=== PATIENT | female | born 2000 ===

== ENCOUNTER 2024-11-11 12:52 | Inpatient (IN) | payer OTHER ==
[~2024-11-11] VITALS: Wt 123.9 kg
[2024-11-11 16:25] VITALS: BP 124/73
[2024-11-11] MEDS ORDERED: Albuterol HFA200 ACT/6.7 GM INH INH PRN (16:25)
[2024-11-11] MEDS ORDERED: EpiNEPhrine 1 MG/1 ML 1ML Vial IM SCH (16:25)
[2024-11-11] MEDS ORDERED: Polyethylene Glycol 3350 17 gm PO PRN (16:30)
[2024-11-11] MEDS ORDERED: DiphenhydrAMINE HCl 50 MG/ML 1ML Vial IM PRN (16:35)
[2024-11-11] MEDS ORDERED: Haloperidol Lactate Inj. 5 MG/ML Injection IM PRN (16:35)
[2024-11-11 16:44] VITALS: BP 124/73
[2024-11-11] MEDS ORDERED: Aluminum Hydroxide 320MG/5ML 473 ML PO PRN (16:45)
[2024-11-11] MEDS ORDERED: Ondansetron 4 MG SoluTab MM PRN (16:45)
[2024-11-11] MEDS ORDERED: AMPDEX30CR (17:02)
[2024-11-11] MEDS ORDERED: SYMBICORT 80-46.9 GM (17:05)
[2024-11-11] MEDS ORDERED: CEFP200 PO (17:06)
[2024-11-11] MEDS ORDERED: ESCI10 PO (17:08)
[2024-11-11] MEDS ORDERED: VITAMIN D5000 UNIT PO (17:08)
[2024-11-11] MEDS ORDERED: HYDHCL25 PO (17:09)
[2024-11-11] MEDS ORDERED: MIRT15 (17:11)
[2024-11-11] MEDS ORDERED: QUETIAPINE FUMA25 MG PO (17:13)
[2024-11-11] MEDS ORDERED: EpiNEPhrine 1 MG/1 ML 1ML Vial IM PRN (18:20)
--- NOTE | 2024-11-11 18:24 | NUR ---
SHIFT SUMMARY PT ARRIVED ON UNIT AT 1600. ENDORSES SI W/ NO PLAN. DENIES HI, AVTH. PT TEARFUL AT TIMES, BUT PLEASANT AND COOPERATIVE. CURRENTLY PLAYING HARRY IN DINING ROOM W/ PEERS. PT STATED THAT SI IS D/T TRIGGERING EVENTS AND THAT SHE "RARELY" HAS SI UNLESS SOMETHING TRIGGERS IT. PT STATED THE CURRENT TRIGGERING EVENT WAS D/T TO "NOT BEING ABLE TO TAKE CARE OF MYSELF" AND STATED BECAUSE SHE MISSED AN APPOINTMENT AND THAT THE BUS DIDNT' ARRIVE TO WHEN SHE WAS TRYING TO GET TO [facility].
--- NOTE | 2024-11-12 05:01 | NUR ---
SHIFT SUMMARY: PATIENT WAS IN THE DINING ROOM EATING DINNER AT THE BEGINNING OF THE SHIFT. SHE LEFT AFTER EATING A FEW BITES, AND CAME OUT TO THE [facility]. SHE DECIDED SHE WAS STILL HUNGRY, AND WAS ALLOWED TO GO BACK IN AND FINISH HER MEAL. SHE THEN CAME OUT AND ASKED FOR MEDICATION FOR ANXIETY. SHE WAS GIVEN VISTARIL WITH GOOD EFFECT. SHE SAT IN THE MIL[facility] AND TALKED WITH A PEER FOR A TIME, THEN WENT DOWN TO HER ROOM. SHE WAS ABLE TO ANSWER ASSOCIATE PROFESSOR OF SOCIOLOGY QUESTIONS IN A LOGICAL AND LINEAR MANNER. SHE DENIED SUICIDAL IDEATION, THOUGHTS OF SELF HARMING AND A/V/T HALLUCINATIONS. SHE PARTICIPATED IN SNACK AND WAS PLEASANT AND COOPERATIVE WITH CARES. SHE ASKED FOR MEDICATION TO HELP HER SLEEP, WHICH WAS GIVEN. SHE THEN WENT TO BED, WHERE SHE WAS NOTED TO BE RESTING QUIETLY WITH EYES CLOSED AND RESPIRATIONS CONFIRMED FOR THE REMAINDER OF THE SHIFT. CONTINUING TO MONITOR FOR SAFETY WITH Q15 MINUTE CHECKS.
[2024-11-12 07:14] LABS: LDL/HDL RATIO 1.5; Very Low Density Lipoprot Chol 16 mg/dL (6-28)
[2024-11-12 07:15] LABS: CHOL/HDL RATIO 2.8; Cholesterol 140 mg/dL (50-200); HDL Cholesterol 50 mg/dL (>39); Low Density Lipoprotein Chol 74 mg/dL (0-110); Triglycerides 81 mg/dL (30-140)
[2024-11-12] MEDS ORDERED: Multivitamins 1 Tab PO SCH (09:00)
[2024-11-12 09:18] VITALS: BP 93/60
--- NOTE | 2024-11-12 17:59 | NUR ---
SHIFT SUMMARY NO ACUTE EVENTS TODAY. PT ENDORSES BEING SAD, BUT DENYING SI, HI, AVTH. STATES SHE IS FEELING, "A LITTLE BETTER". PT WENT TO AFTERNOON GROUPS AND HAS BEEN INTERACTING W/ PEERS AND STAFF. PT ALSO DRAWING, WHICH SHE HAD MENTIONED DURING ADMIT IS SOMETHING SHE SHE ENJOYS DOING, BUT HASN'T BEEN DOING SO D/T DEPRESSION. HAS NOT BEEN TEARFUL/LABILE W/ MOOD TODAY.
[2024-11-12 19:25] VITALS: BP 99/76
--- NOTE | 2024-11-13 05:18 | NUR ---
SHIFT SUMMARY Pt is A&O, calm, cooperative, eye contact is good. Pt s mood is better, affect is constricted. Pt denies SI, HI, and hallucinations. Pt endorsed headache pain 4/10w. Pt stated that she felt much better today after sleeping well last night and this morning. Pt reports no adverse reactions or side effects to her new med, fluoxetine, after receiving her first dose this afternoon. She received PRN trazodone, melatonin, and ibuprofen HS. Pt was active on the milieu this evening, drawing in the common room. Staff continues to monitor q15m for safety and wellness.
[2024-11-13 08:57] VITALS: BP 103/70
--- NOTE | 2024-11-13 17:30 | NUR ---
SHIFT SUMMARY PT AxOx4. PLEASANT AND COOPERATIVE WITH CARE. PT DENIED SI/HI AND AVTH THIS SHIFT AND REPORTED A "PRETTY GOOD" MOOD. PT REPORTED HEADACHE THIS AM, WHICH SHE WAS MEDICATED FOR WITH REPORTED RELIEF. PT HAS BEEN FOLLOWING TREATMENT PLAN THIS SHIFT INCLUDING TAKING MEDICATIONS PRESCRIBED, ATTENDING ALL [facility] THERAPY GROUPS AND MINGLING APPROPRIATELY WITH PEERS/STAFF. PT MET WITH DIGITAL DATA ANALYST FOR THERAPY SESSION. SHE ALSO HAD VISIT WITH HER BOYFRIEND, BECKY. CURRENT PLAN IS TO EXPECT DC WEDNESDAY IF PT STABLE. PT AWARE AND AGREABLE TO THIS PLAN.
[2024-11-13 20:39] VITALS: BP 114/71
--- NOTE | 2024-11-14 05:37 | NUR ---
SHIFT SUMMARY Pt is A&O, calm, cooperative, eye contact is good. Pt s mood is much better, affect is congruent to stated mood. Pt denies SI, HI, and hallucinations. Pt denies current pain. Pt stated that it had been a few days since her last BM. Pt received PRN melatonin, trazodone, and PEG. Pt was active on the milieu during the evening, drawing in the common room. Staff continues to monitor q15m for safety and wellness.
[2024-11-14 09:00] VITALS: BP 117/73
--- NOTE | 2024-11-14 17:12 | NUR ---
SHIFT SUMMARY PT AA&O TO PERSON, PLACE, SITUATION, AND TIME. SHE IS PLEASANT AND COOPERATATIVE WITH CARE. SPEECH IS QUIET BUT APPROPRIATE. EYE CONTACT IS APPROPRIATE. PT REPORTS FEELING ANXIOUS TODAY, THAT SHE IS COCERNED WITH DC. DR. PARKER ADDED BUSPAR AND DC DELAYED UNTIL WEDNESDAY. SHE DENIES SI, AVH. SHE HAS BEEN UP TO GROUPS WITH ENCOURAGEMENT. SHE HAS SPENT TIME ON THE PATIO. WILL CONTINUE PLAN OF CARE
[2024-11-14 20:56] VITALS: BP 120/75
--- NOTE | 2024-11-15 04:21 | NUR ---
Patient is alert and oriented times four. She participates in activities of the milieu and converses with both staff and her peers. She denies SI,HI and AVTH at time of evening assessment. She is still anxious about leaving the [facility] and getting into trouble with her medications and therapy while waiting for appointments where she is from. Will continue close monitoring every 15 minutes for safety and comfort.
[2024-11-15 08:57] VITALS: BP 120/74
--- NOTE | 2024-11-15 16:59 | NUR ---
SHIFT SUMMARY PT AA&O TO PERSON, PLACE, SITUATION AND TIME. SHE IS PLEASANT AND COOPERATIVE WITH CARE. SPEECH AND EYE CONTACT APPROPRIATE. SHE IS COMPLIANT WITH MEDICATIONS. MOOD IS EUTHYMIC AFFECT IS CONGRUENT. PT REPORTS THAT BUSPAR IS EFFECTIVE AND REPORTS DECREASED ANXIETY AND DENIES ANY SIDE EFFECTS. PT HAS BEEN UP FOR ALL GROUPS MEALS AND SHOWER. SHE DENIES CURRENT SI, AVH. WILL CONTINUE POC
[2024-11-15 19:18] VITALS: BP 133/78
--- NOTE | 2024-11-15 22:12 | NUR ---
MID SHIFT SUMMARY Patient is alert and oriented times four. She participated in activities in the milieu and is very pleasant with both staff and her peers. She denied SI, HI and AVTH during evening assessment. Will report to oncoming RN and continue monitoring every 15 minutes for safety and comfort
--- NOTE | 2024-11-16 04:16 | NUR ---
SHIFT SUMMARY: PATIENT WAS TRANSFERRED TO THIS RN'S CARE AT 2230. PATIENT CONTINUED TO REST QUIETLY WITH EYES CLOSED AND RESPIRATIONS CONFIRMED FOR THE REMAINDER OF THE SHIFT, WITH NO NEEDS OR CONCERNS NOTED. CONTINUING TO MONITOR FOR SAFETY WITH Q15 MINUTE CHECKS.
[2024-11-16] MEDS ORDERED: BUSP10 (08:43)
[2024-11-16] MEDS ORDERED: FLUO10 PO (08:43)
[2024-11-16 08:55] VITALS: BP 114/58
--- NOTE | 2024-11-16 09:43 | NUR ---
IMPORTANT DISCHARGE INFORMATION PATIENT DISCHARGING TODAY. SHE WILL BE PICKED UP VIA [facility] . TRANSPORTED TO HER HOME ADDRESS. ALL PARTIES VERBALIZE AN UNDERSTANDING, POSTAL SUPERVISOR TIME IS 2PM. FOLLOW UP WITH PCP DR. HEREDIA ON 11/25/24 AT 4:00PM. FOLLOW UP WITH MENTAL HEALTH ON 11/17/24 AT 11:00AM PHARMACY: [facility] FOR: FOOD [employer]AN, HOUSING SUPPORT, JOB TRAINING, FREE CLOTHING, UTILITY SUPPORT AND TRANSPORTATION.
--- NOTE | 2024-11-16 14:34 | NUR ---
Discharge: At 1433 our patient was picked up by transport to be brought [facility] her [facility] Before leaving, a safety plan was completed, discharge paperwork was gone through and patients beloning were given back and signed for. Patient is not having any suicidal thoughts and is displaying safe behaviors. She is aware of her appointments that have been set up for her, with mental health and primary care. Patient was provided clothing from our [facility] closet, as she didn't have her own at the facility.
== END 2024-11-16 14:33 | disposition home or self-care (01) | DRG 882 ==
LOC: BHU 12:52
PROVIDERS: ADMIT Psychiatry & Neurology Psychiatry
DX: F43.25 Adjustment disorder with mixed disturbance of emotions and conduct (principal); R45.851 Suicidal ideations; F90.9 Attention-deficit hyperactivity disorder, unspecified type; F32.A Depression, unspecified; Z79.899 Other long term (current) drug therapy
CPT/HCPCS: 36415; 80061; 83036; A9270